=== PATIENT | female | born 1975 | race American Indian/Alaskan Native ===

== ENCOUNTER 2018-10-31 09:52 | Outpatient (CLI) | payer OTHER | END 2018-10-31 09:59 | disposition home or self-care (01) | LOC: LAB 09:52 | DX: N20.0 Calculus of kidney (principal) ==

== ENCOUNTER → 2018-10-31 | Outpatient (CLI) | payer OTHER | END | disposition home or self-care (01) | LOC: MRI 11:25 | DX: R10.84 Generalized abdominal pain (principal); R93.2 Abnormal findings on diagnostic imaging of liver and biliary tract; D18.03 Hemangioma of intra-abdominal structures | CPT/HCPCS: 74182 ==

== ENCOUNTER 2019-05-07 15:00 | Inpatient (IN) | payer OTHER ==
[~2019-05-07] VITALS: Ht 162.6 cm; Wt 65.8 kg
== END 2019-05-18 12:38 | disposition home or self-care (01) | DRG 743 ==
LOC: O/R 05-16 05:07 → OB/GYN 05-16 05:07 → SURH 05-16 07:00 → OB/GYN 05-16 12:02 → O/R 05-16 15:00 → SURH 05-16 15:00 → OB/GYN 05-18 12:38
PROVIDERS: ADMIT Obstetrics & Gynecology
PROC: 0UT70ZZ Resection of Bilateral Fallopian Tubes, Open Approach (ICD-10-PCS; 2019-05-16)
PROC: 0UT20ZZ Resection of Bilateral Ovaries, Open Approach (ICD-10-PCS; 2019-05-16)
PROC: 0UT90ZZ Resection of Uterus, Open Approach (ICD-10-PCS; principal; 2019-05-16 07:00)
DX: D25.1 Intramural leiomyoma of uterus (principal); N72 Inflammatory disease of cervix uteri; N84.0 Polyp of corpus uteri; N83.292 Other ovarian cyst, left side; N83.291 Other ovarian cyst, right side; N83.12 Corpus luteum cyst of left ovary; N83.02 Follicular cyst of left ovary; N83.01 Follicular cyst of right ovary

== ENCOUNTER 2024-12-21 07:04 | Outpatient (CLI) | payer OTHER | END 2024-12-21 07:14 | disposition home or self-care (01) | LOC: MRI 07:04 | PROVIDERS: ATTEND Internal Medicine Gastroenterology | DX: D18.03 Hemangioma of intra-abdominal structures (principal) | CPT/HCPCS: 74182 ==